=== PATIENT | female | born 1960 | race Caucasian/White ===

== ENCOUNTER 2017-03-11 08:23 | Day surgery (SDC) | payer OTHER ==
[~2017-03-11 08:23] MED LIST: ROCURONIUM 50 MG INJ
[2017-03-11] MEDS ORDERED: SOD CHLORIDE 0.9% 1,000 ML IV (09:30)
[2017-03-11] MEDS ORDERED: CEFAZOLIN 2 GM/50 ML (PMX) 50 ML IVPB (09:30)
[2017-03-11] MEDS ORDERED: CEFAZOLIN 1 GM INJ (10:37)
[2017-03-11] MEDS ORDERED: PROPOFOL 20 ML (10:37)
[2017-03-11] MEDS ORDERED: MIDAZOLAM 1 MG/ML 2 ML INJ (10:38)
[2017-03-11] MEDS ORDERED: FENTAnyl 50 MCG/ML VIAL (10:38)
[2017-03-11] MEDS ORDERED: BUPIVACAINE 0.5% (SDV) 30 ML INJ (10:54)
[2017-03-11] MEDS ORDERED: EPHEDrine SULFATE 50 MG/5 ML SYG IV (12:00)
[2017-03-11] MEDS ORDERED: OXYCODONE/ACETAMINOPHEN (5/325) TAB PO ×2 (12:00)
[2017-03-11] MEDS ORDERED: LABETALOL HCL 20MG INJ IV (12:00)
[2017-03-11] MEDS ORDERED: METOCLOPRAMIDE 10 MG INJ IV (12:00)
[2017-03-11] MEDS ORDERED: FENTAnyl 50 MCG/ML VIAL IV ×3 (12:00)
[2017-03-11] MEDS ORDERED: HYDROmorphONE (0.2 MG/ML) 10ML SYG IV ×3 (12:00)
[2017-03-11] MEDS ORDERED: ONDANSETRON 4 MG INJ IV (12:00)
[2017-03-11] MEDS ORDERED: hydrALAzine 20 MG INJ IV (12:00)
[2017-03-11] MEDS ORDERED: MEPERIDINE 25 MG INJ IV (12:00)
[2017-03-11] MEDS ORDERED: DIPHENHYDRAMINE 50 MG INJ IV (12:00)
[2017-03-11] MEDS: STERILE WATER 1L IRRIG BTL IRR (12:16)
[2017-03-11] MEDS: BUPIVACAINE 0.5% 30 ML VIAL INJ (12:16)
[2017-03-11] MEDS ORDERED: METOCLOPRAMIDE 10 MG INJ (12:33)
[2017-03-11] MEDS ORDERED: DEXAMETHASONE 4 MG/ML 1 ML INJ (12:33)
[2017-03-11] MEDS ORDERED: KETOROLAC 30 MG INJ (12:33)
[2017-03-11] MEDS ORDERED: ONDANSETRON 4 MG INJ (12:33)
[2017-03-11] MEDS ORDERED: GLYCOPYRROLATE 0.4 MG INJ (12:55)
[2017-03-11] MEDS ORDERED: NEOSTIGMINE 3 MG/3 ML SYRINGE (12:55)
[2017-03-11] MEDS ORDERED: HYDROCODONE/APAP (7.5/325) TAB PO (13:00)
== END 2017-03-11 14:51 | disposition home or self-care (01) ==
LOC: SDS 08:23
DX: N60.22 Fibroadenosis of left breast (principal); I10 Essential (primary) hypertension
CPT/HCPCS: 19301; 88307

== ENCOUNTER 2018-04-14 06:23 | Day surgery (SDC) | payer OTHER ==
[2018-04-14] MEDS ORDERED: CEFAZOLIN 1 GM INJ (07:00)
[2018-04-14] MEDS ORDERED: SOD CHLORIDE 0.9% 1,000 ML IV (08:00)
[2018-04-14] MEDS ORDERED: CEFAZOLIN 2 GM/50 ML (PMX) 50 ML IVPB (08:00)
[2018-04-14] MEDS ORDERED: ROCURONIUM 50 MG INJ (09:48)
[2018-04-14] MEDS ORDERED: SUCCINYLCHOLINE CHLORIDE 100 MG/5 ML SYG IV (09:48)
[2018-04-14] MEDS ORDERED: LIDOCAINE 2% (SDV) 5 ML INJ (09:48)
[2018-04-14] MEDS ORDERED: NEOSTIGMINE 3 MG/3 ML SYRINGE (09:48)
[2018-04-14] MEDS ORDERED: MEPERIDINE 100 MG INJ (09:48)
[2018-04-14] MEDS ORDERED: PROPOFOL 20 ML (09:48)
[2018-04-14] MEDS ORDERED: GLYCOPYRROLATE 0.4 MG INJ ×2 (09:48→10:53)
[2018-04-14] MEDS ORDERED: METOCLOPRAMIDE 10 MG INJ (10:52)
[2018-04-14] MEDS ORDERED: ONDANSETRON 4 MG INJ (10:52)
[2018-04-14] MEDS ORDERED: EPHEDrine SULFATE 50 MG/5 ML SYG IV (11:00)
[2018-04-14] MEDS ORDERED: MIDAZOLAM 1 MG/ML 2 ML INJ IV (11:00)
[2018-04-14] MEDS ORDERED: FENTAnyl 50 MCG/ML VIAL IV ×3 (11:00)
[2018-04-14] MEDS ORDERED: OXYCODONE/ACETAMINOPHEN (5/325) TAB PO (11:00)
[2018-04-14] MEDS: BUPIVACAINE 0.25% (MPF) 30 ML INJ (11:00)
[2018-04-14] MEDS ORDERED: HYDROmorphONE 1 MG/5 ML IV SYRINGE IV ×2 (11:00)
[2018-04-14] MEDS ORDERED: DIPHENHYDRAMINE 50 MG INJ IV (11:00)
[2018-04-14] MEDS ORDERED: hydrALAzine 20 MG INJ IV (11:00)
[2018-04-14] MEDS ORDERED: METOCLOPRAMIDE 10 MG INJ IV (11:00)
[2018-04-14] MEDS ORDERED: LABETALOL HCL 20MG INJ IV (11:00)
[2018-04-14] MEDS: POLYMYXIN/BACITRACIN 1L IRRIG (11:02)
[2018-04-14] MEDS ORDERED: EPHEDrine SULFATE 50 MG/5 ML SYG (11:05)
[2018-04-14] MEDS ORDERED: HYDROCODONE/APAP (5/325) TAB PO (11:30)
[2018-04-14] MEDS: HYDROmorphONE 1 MG/5 ML IV SYRINGE IV (11:49)
[2018-04-14] MEDS: OXYCODONE/ACETAMINOPHEN (5/325) TAB PO (12:15)
[2018-04-14] MEDS: ONDANSETRON 4 MG INJ IV (12:15)
[2018-04-14] MEDS: MEPERIDINE 25 MG INJ IV (12:15)
== END 2018-04-14 16:00 | disposition home or self-care (01) ==
LOC: SDS 06:23
DX: K43.0 Incisional hernia with obstruction, without gangrene (principal); I10 Essential (primary) hypertension
CPT/HCPCS: 49657